=== PATIENT | female | born 1935 | race Caucasian/White ===

== ENCOUNTER → 2017-03-17 | Outpatient (CLI) | payer MEDICARE, OTHER ==
[~2017-03-17] MED LIST: ASPI-839 PO; ASPI81TA94 PO; ASPIRIN; BENICAR; CALC-2 PO; LIPITOR; PNEU0.5D3 IM; PRAV20TA65 PO; PRAV40TA78 PO; TUMS; VALS320T12 PO; VIT-7 PO
--- NOTE | 2017-03-17 10:45 | RADIOLOGY IMAGING REPORT ---
FACILITY: [facility] - [place] PATIENT NAME: Pretty Peñaloza : 1935 MR: [id number] V: [id number] EXAM DATE: ORDERING PHYSICIAN: EMY HAYES TECHNOLOGIST: Location: [facility] - [place] Patient: Pretty Peñaloza : 1935 Visit/Account:[id number] Date of Sevice: 03/17/2017 DEXA Scan Clinical history: Postmenopausal state. Comparison: DEXA scan from 07/16/2007. LUMBAR SPINE: The bone mineral density (BMD) measured from L1-L2 correlates with a Z-score of 5.2 and a T-score of 11 which is Normal as defined by the World Health Organization. The corresponding risk of fracture i n the lumbar spine is Not increased compared with a young adult reference population. This value has increased by 3.4 % since the prior study. More than 5% change is considered significant. HIP: Bone mineral density (BMD) measured in the LEFT total hip region correlates with a Z-score 1.7 and a T-score of -0.6 which is normal as defined by the World Health Organization. The corresponding risk of fracture in the hip is 1-2 t imes increased compared to a young adult reference population. This value has decreased by 4.8 % sinc e the prior study. More than 5% change is considered significant. T score left femoral neck -1.5 Bone mineral density (BMD) measured in the Femoral Neck region measures 0.831 g/cm?. IMPRESSION: 1. Lumbar spine: Normal. There has been 3.4% increase in the bone mineral density since the previou s exam. 2. Left Total Hip: Normal. There has been 4.8% decrease in the bone mineral density since the previ ous exam. 3. Femoral Neck: Bone Mineral Density is 0.831 g/cm? The next DEXA scan of this patient should include the following sites: L1-L2 and the left hip. FRAX? WHO Fracture Risk Assessment Tool link: <http://www.shef.ac.uk/FRAX/tool.jsp?locationValue=9> PLEASE NOTE: 1) The World Health Organization defines low BMD as follows: T-score Normal > -1 Osteopenia < -1 and > -2.5 Osteoporosis < -2.5 without fractures Established osteoporosis < -2.5 with fractures 2) In general, you may wish to consider: Diagnosis Treatment Follow-up DEXA Normal BMD Prevention 2-3 years Osteopenia Prevention/therapy 1-2 years Osteoporosis Therapy Yearly 3) Fracture risk estimated from the T-score is more accurate for vertebral fractures (often spontane ous) than for hip fractures. Report Dictated By: Nhi Andrew MD at 03/17/2017 10:39 AM Report E-Signed By: Nhi Andrew MD at 03/17/2017 10:41 AM WSN:[email or web address]
== END ==
LOC: RAD 01:48
PROVIDERS: ATTEND Emergency Medicine
DX: Z78.0 Asymptomatic menopausal state (principal)
CPT/HCPCS: 77080

== ENCOUNTER → 2017-03-27 | Outpatient (CLI) | payer MEDICARE, OTHER | LOC: LAB 11:48 | PROVIDERS: ATTEND Emergency Medicine | DX: I10 Essential (primary) hypertension (principal); Z91.89 Other specified personal risk factors, not elsewhere classified; M81.0 Age-related osteoporosis without current pathological fracture | CPT/HCPCS: 36415; 82306; 82310; 82374; 82435; 82565; 82947; 84132; 84295; 84520 ==

== ENCOUNTER → 2017-09-02 | Outpatient (CLI) | payer MEDICARE, OTHER ==
[~2017-09-02] MED LIST changes: +DEN60I SUBQ; +OMEG-11 PO
--- NOTE | 2017-09-02 12:48 | RADIOLOGY IMAGING REPORT ---
FACILITY: [facility] [place]IENT NAME: Pretty Peñaloza : 1935 MR: [id number] V: [id number] EXAM DATE: ORDERING PHYSICIAN: GIOVANNI POND TECHNOLOGIST: Location: [facility] Patient: Pretty Peñaloza : 1935 Visit/Account:[id number] Date of Sevice: 09/02/2017 CHEST PA AND LAT COMPARISONS: None. ADDITIONAL PERTINENT HISTORY: Cough FINDINGS: Cardiomediastinal silhouette: Negative. Pulmonary vasculature: Negative. Lung bliss: Negative. Pleural spaces: Negative. Osseous structures: Spondylitic change involving the thoracic spine. Otherwise negative Surrounding soft tissues: Patient status post cholecystectomy. IMPRESSION: No evidence of acute cardiopulmonary disease. Report Dictated By: Emmanuel Bowens MD at 09/02/2017 12:44 PM Report E-Signed By: Emmanuel Bowens MD at 09/02/2017 12:45 PM WSN:[id number]
== END ==
LOC: RAD 12:05
PROVIDERS: ATTEND Physician Assistant Medical
DX: M47.894 Other spondylosis, thoracic region (principal); Z90.49 Acquired absence of other specified parts of digestive tract
CPT/HCPCS: 71046

== ENCOUNTER → 2017-10-15 | Outpatient (CLI) | payer MEDICARE, OTHER ==
[~2017-10-15] MED LIST changes: +LOSA100T67 PO
== END ==
LOC: LAB 09:53
PROVIDERS: ATTEND Urology
DX: N39.0 Urinary tract infection, site not specified (principal)
CPT/HCPCS: 81001; 87088

== ENCOUNTER → 2017-10-19 | Outpatient (CLI) | payer MEDICARE, OTHER | LOC: LAB 08:34 | PROVIDERS: ATTEND Emergency Medicine | DX: I10 Essential (primary) hypertension (principal) | CPT/HCPCS: 36415; 82310; 82374; 82435; 82565; 82947; 84132; 84295; 84520 ==

== ENCOUNTER → 2017-10-29 | Outpatient (CLI) | payer MEDICARE, OTHER | LOC: LAB 09:49 | PROVIDERS: ATTEND Urology | DX: N39.0 Urinary tract infection, site not specified (principal); B96.20 Unspecified Escherichia coli [E. coli] as the cause of diseases classified elsewhere | CPT/HCPCS: 81001; 87077; 87088; 87186 ==

== ENCOUNTER → 2017-11-12 | Outpatient (CLI) | payer MEDICARE, OTHER ==
[~2017-11-12] MED LIST changes: -LOSA100T67 PO; +LOSA100T69 PO
--- NOTE | 2017-11-12 15:33 | RADIOLOGY IMAGING REPORT ---
FACILITY: [facility] - [place], [place] PATIENT NAME: SYLVIA HOBBS : [id number] MR: [id number] V: [id number] EXAM DATE: ORDERING PHYSICIAN: EMY HAYES TECHNOLOGIST: Ella Awan PROCEDURE:BILATERAL DIGITAL SCREENING MAMMOGRAM WITH CAD ASSISTED INTERPRETATION & 3D TOMOSYNTHESIS COMPARISON:Prior mammograms 11/04/16, 10/12/15, 10/10/14, 09/13/13, 08/10/12, 07/30/11. INDICATIONS:SCREENING FINDINGS: Small amount of fibroglandular tissue is seen throughout the breasts. The parenchymal pattern has remained stable allowing for difference in mammographic technique & patient positioning. There is no evidence of malignant appearing mass, malignant appearing calcifications or other secondary sign of malignancy in either breast. DIAGNOSTIC CATEGORY 1--NEGATIVE. RECOMMENDATIONS: ROUTINE MAMMOGRAM AND CLINICAL EVALUATION. IMPRESSION: BIRADS 1: Negative. No significant abnormality is seen. Dictated by: Nhi Andrew M.D. on 11/12/2017 at 11:02 Transcribed by: DULCE MARIA on 11/12/2017 at 11:08 Approved by: Nhi Andrew M.D. on 11/12/2017 at 15:32 [facility]
== END ==
LOC: MAMO 00:47
PROVIDERS: ATTEND Emergency Medicine
DX: Z12.31 Encounter for screening mammogram for malignant neoplasm of breast (principal); Z80.3 Family history of malignant neoplasm of breast
CPT/HCPCS: 77063; 77067

== ENCOUNTER → 2018-01-26 | Outpatient (CLI) | payer MEDICARE, OTHER ==
[~2018-01-26] MED LIST changes: +FLU180SY11 IM; +PNEI IJ
== END ==
LOC: LAB 08:54
PROVIDERS: ATTEND Urology
DX: N39.0 Urinary tract infection, site not specified (principal)
CPT/HCPCS: 81001; 87088

== ENCOUNTER → 2018-04-14 | Outpatient (CLI) | payer MEDICARE, OTHER ==
[~2018-04-14] MED LIST changes: -LOSA100T69 PO; +LOSA100T75 PO
== END ==
LOC: LAB 09:02
PROVIDERS: ATTEND Urology
DX: N39.0 Urinary tract infection, site not specified (principal); B96.89 Other specified bacterial agents as the cause of diseases classified elsewhere
CPT/HCPCS: 81001; 87077; 87088; 87186

== ENCOUNTER → 2018-04-29 | Outpatient (CLI) | payer MEDICARE, OTHER ==
[~2018-04-29] MED LIST changes: +FLUT16SP19 NS
[2018-04-29 10:02] LABS: PLATELET COUNT, AUTOMATED 246 K/uL (150-450)
[2018-04-29 10:17] LABS: LDL CHOLESTEROL 49 mg/dl
== END ==
LOC: LAB 09:49
PROVIDERS: ATTEND Emergency Medicine
DX: E78.5 Hyperlipidemia, unspecified (principal); M85.80 Other specified disorders of bone density and structure, unspecified site; I10 Essential (primary) hypertension; R73.03 Prediabetes
CPT/HCPCS: 36415; 82040; 82247; 82306; 82310; 82374; 82435; 82465; 82565; 82947; 83036; 83718; 84075; 84132; 84155; 84295; 84450; 84460; 84478; 84520; 85025

== ENCOUNTER → 2018-08-30 | Outpatient (CLI) | payer MEDICARE, OTHER ==
[~2018-08-30] MED LIST changes: +SERT25TA90 PO
--- NOTE | 2018-08-30 09:53 | EKG ---
FACILITY: [facility] - [place] PATIENT NAME: SYLVIA HOBBS : [id number] MR: [id number] V: [id number] EXAM DATE: ORDERING PHYSICIAN: QUINCY CAMACHO TECHNOLOGIST: DANIELLE Duval Reason : PRE-OP CARPAL TUNNEL Blood Pressure : / mmHG Vent. Rate : 073 BPM Atrial Rate : 073 BPM P-R Int : 152 ms QRS Dur : 088 ms QT Int : 394 ms P-R-T Axes : 038 064 035 degrees QTc Int : 434 ms Normal sinus rhythm No ST-T abnormalities No previous ECGs available Confirmed by SABRINA SARMIENTO ([id number]) on 08/30/2018 1:45:47 PM Referred By: DOUG Confirmed By:SABRINA SARMIENTO
== END ==
LOC: RESP 09:34
PROVIDERS: ATTEND Anesthesiology
DX: Z01.810 Encounter for preprocedural cardiovascular examination (principal); G56.02 Carpal tunnel syndrome, left upper limb
CPT/HCPCS: 93005